=== PATIENT | female | born 1950 | race Caucasian/White ===

== ENCOUNTER 2020-12-13 13:19 | Emergency (ER) | payer MEDICARE ==
--- NOTE | 2020-12-13 14:19 | EDM.PDOC ---
ED HPI GENERAL MEDICAL PROBLEM - General Chief Complaint: Respiratory Problem Stated Complaint: COUGH Time Seen by Provider: 12/13/20 14:11 Source of Information: Reports: Patient, Family, RN Notes Reviewed History Limitations: Reports: No Limitations - History of Present Illness INITIAL COMMENTS - FREE TEXT/NARRATIVE: 70-year-old female presents emergency department day complaint of cough, she was evaluated by her primary care started on Tessalon Perles. She states she does not like the Perles as it makes her sedated. She is also set up for a PET scan in the future radiology did find some suspicious lesions in her lung palmer she is set up for that on Saturday of next week - Related Data Allergies Allergy/AdvReac Type Severity Reaction Status Date / Time No Known Allergies Allergy Verified 12/13/20 13:37 Home Meds: Home Meds Albuterol Sulfate [Albuterol Sulfate Hfa] 1 - 2 puff INH Q4H PRN 12/13/20 [History] Benzonatate [Tessalon Perle] 100 mg PO TID 12/13/20 [History] Clopidogrel [Plavix] 75 mg PO DAILY 12/13/20 [History] LORazepam [Ativan] 0.5 mg PO ASDIRECTED 12/13/20 [History] Pravastatin Sodium 80 mg PO BEDTIME 12/13/20 [History] amLODIPine [Norvasc] 10 mg PO DAILY 12/13/20 [History] glipiZIDE [Glucotrol XL] 5 mg PO DAILY 12/13/20 [History] lisinopriL [Lisinopril] 5 mg PO DAILY 12/13/20 [History] Past Medical History Cardiovascular History: Reports: Aneurysm, High Cholesterol, Hypertension, PVD Respiratory History: Reports: COPD Genitourinary History: Reports: Renal Disease Other Genitourinary History: Stage 3, renal artery stenosis Endocrine/Metabolic History: Reports: Diabetes, Type II Social & Family History - Tobacco Use Tobacco Use Status *Q: Current Every Day Tobacco User Years of Tobacco use: 50 Packs/Tins Daily: 1 - Caffeine Use Caffeine Use: Reports: Coffee - Recreational Drug Use Recreational Drug Use: No ED ROS GENERAL - Review of Systems Review Of Systems: See Below Constitutional: Reports: No Symptoms Respiratory: Reports: Cough Cardiovascular: Reports: No Symptoms GI/Abdominal: Reports: No Symptoms ED EXAM, GENERAL - Physical Exam Exam: See Below Exam Limited By: No Limitations General Appearance: Alert, WD/WN, No Apparent Distress Respiratory/Chest: No Respiratory Distress, Lungs Clear, Normal Breath Sounds, No Accessory Muscle Use, Chest Non-Tender Cardiovascular: Regular Rate, Rhythm, No Murmur Course - Vital Signs Last Recorded V/S: Last Vital Signs Temp 97.6 F 12/13/20 13:41 Pulse 87 12/13/20 13:41 Resp 18 12/13/20 13:41 BP 145/70 H 12/13/20 13:41 Pulse Ox 96 12/13/20 13:41 Departure - Departure Time of Disposition: 14:18 Disposition: Home, Self-Care 01 Condition: Fair Clinical Impression: Cough - Discharge Information Instructions: Cough, Adult, [id number] Referrals: Beatriz Leahy MD [Primary Care Provider] - Additional Instructions: Use the Robitussin-AC as needed to suppress the cough keep your follow-up appointment after the PET scan with your primary care Sepsis Event Note (ED) - Evaluation Sepsis Screening Result: No Definite Risk - Focused Exam Vital Signs: Vital Signs Temp Pulse Resp BP Pulse Ox 12/13/20 13:41 97.6 F 87 18 145/70 H 96 12/13/20 13:34 97.6 F 87 18 145/70 H 96 - Assessment/Plan Plan: Assessment Acuity = acute Site and laterality = cough complicated patient with known history of COPD Etiology = unknown Manifestations = none Location of injury = Home Lab values = none Plan Prescription written for Robitussin-AC 5 mL p.o. 3 times daily as needed follow- up primary after PET scan This note was dictated using [place] voice recognition software please call with any questions on syntax or grammar.
== END 2020-12-13 14:26 | disposition home or self-care (01) ==
LOC: JP.ED 13:19
DX: R05 Cough (principal); E78.00 Pure hypercholesterolemia, unspecified; I10 Essential (primary) hypertension; J44.9 Chronic obstructive pulmonary disease, unspecified; Z72.0 Tobacco use; Z79.899 Other long term (current) drug therapy; Z79.02 Long term (current) use of antithrombotics/antiplatelets
CPT/HCPCS: 99283

== ENCOUNTER 2023-12-22 08:51 | Inpatient (IN) | payer MEDICARE ==
[2023-12-22 09:25] LABS: BASOPHILS ABSOLUTE AUTO 0.04 K/uL (0.00-0.10); BASOPHILS PERCENT AUTO 0.3 % (0.1-1.3); EOSINOPHILS ABSOLUTE AUTO 0.07 K/uL (0.00-0.40); EOSINOPHILS PERCENT AUTO 0.6 % (0.0-5.4); HEMATOCRIT 33.8 % (34.3-46.0); HEMOGLOBIN 10.8 g/dL (11.2-15.5); IMMATURE GRAN ABSOLUTE AUTO 0.04 K/uL (0.00-0.23); IMMATURE GRAN PERCENT AUTO 0.3 % (0.0-0.7); LYMPHOCYTES ABSOLUTE AUTO 1.67 K/uL (0.8-3.3); LYMPHOCYTES PERCENT AUTO 14.3 % (11.4-47.7); MEAN CORPUSCULAR HEMOGLOBIN 28.4 pg (31.6-35.5); MEAN CORPUSCULAR VOLUME 88.9 fL (81.4-99.0); MONOCYTES ABSOLUTE AUTO 0.49 K/uL (0.20-0.90); MONOCYTES PERCENT AUTO 4.2 % (3.3-12.6); NEUTROPHILS ABSOLUTE AUTO 9.39 K/uL (1.0-7.6); NEUTROPHILS PERCENT AUTO 80.3 % (40.0-78.1); PLATELET COUNT,PLT 291 K/uL (130-375); WHITE BLOOD CELL COUNT,WBC 11.7 K/uL (3.2-11.0)
[2023-12-22 09:31] LABS: PROTHROMBIN TIME 10.6 sec (9.2-10.6)
[2023-12-22] MEDS: Sodium Chloride 0.9% 1,000 ML IV SCH ×2 (09:31→13:28)
[2023-12-22 09:38] LABS: A/G RATIO 0.7 (1.2-2.2); ALANINE AMINOTRANSFERASE,ALT 14 U/L (12-78); ALBUMIN 2.8 g/dL (3.4-5.0); ALKALINE PHOSPHATASE 162 U/L (46-116); ASPARTATE AMNIOTRANSFERASE,AST 12 U/L (15-37); BILIRUBIN TOTAL 0.3 mg/dL (0.2-1.0); BLOOD UREA NITROGEN,BUN 37 mg/dL (7-18); CALCIUM 9.1 mg/dL (8.5-10.1); CARBON DIOXIDE,CO2 20 mmol/L (21-32); CHLORIDE,CL 107 mmol/L (100-108); CREATININE 2.2 mg/dL (0.6-1.0); EST CRCL DRUG DOSING (CG) 19.88 mL/min; ESTIMATED GFR 23 mL/min (>60); GLUCOSE RANDOM 143 mg/dL (74-106); POTASSIUM,K 5.6 mmol/L (3.6-5.2); SODIUM,NA 139 mmol/L (140-148)
[2023-12-22 09:39] LABS: ANION GAP 17.6 mmol/L (5.0-14.0)
[2023-12-22] MEDS: Pantoprazole 40 MG Vial IVPUSH ONE (11:16)
[2023-12-22] MEDS ORDERED: Albuterol 6.7 GM Inhaler INH PRN (12:52)
[2023-12-22] MEDS ORDERED: Sodium Chloride 0.9% 10 ML Syringe FLUSH PRN (12:52)
[2023-12-22] MEDS ORDERED: Acetaminophen 325 MG Tab PO PRN (12:52)
[2023-12-22] MEDS: Pantoprazole 80 MG in Sodium Chloride 0.9% 100 ML IV SCH (13:28)
[2023-12-22] MEDS: Sodium Polystyrene Sulfonate 15 GM/60 ML Susp 60 ML Bot PO ONE (13:28)
[2023-12-22] MEDS: Bisacodyl 5 MG Tab PO ONE ×2 (14:39→20:03)
[2023-12-22] MEDS: Nicotine 7 MG/24 Hr Patch TRDERM SCH (16:56)
[2023-12-22] MEDS: Polyethylene Glycol 3350 Powder 238 GM Bot PO ONE (17:03)
[2023-12-22] MEDS: Ondansetron 4 MG/2 ML SDV IV PRN (18:21)
[2023-12-22] MEDS: Pravastatin 20 MG Tab PO SCH (20:03)
[2023-12-23 05:10] LABS: BASOPHILS ABSOLUTE AUTO 0.04 K/uL (0.00-0.10); BASOPHILS PERCENT AUTO 0.5 % (0.1-1.3); EOSINOPHILS ABSOLUTE AUTO 0.16 K/uL (0.00-0.40); EOSINOPHILS PERCENT AUTO 1.8 % (0.0-5.4); HEMATOCRIT 27.9 % (34.3-46.0); HEMOGLOBIN 9.2 g/dL (11.2-15.5); IMMATURE GRAN ABSOLUTE AUTO 0.04 K/uL (0.00-0.23); IMMATURE GRAN PERCENT AUTO 0.5 % (0.0-0.7); LYMPHOCYTES ABSOLUTE AUTO 1.95 K/uL (0.8-3.3); MEAN CORPUSCULAR HEMOGLOBIN 29.5 pg (31.6-35.5); MEAN CORPUSCULAR VOLUME 89.4 fL (81.4-99.0); MONOCYTES ABSOLUTE AUTO 0.66 K/uL (0.20-0.90); MONOCYTES PERCENT AUTO 7.4 % (3.3-12.6); NEUTROPHILS ABSOLUTE AUTO 6.03 K/uL (1.0-7.6); NEUTROPHILS PERCENT AUTO 67.8 % (40.0-78.1); PLATELET COUNT,PLT 152 K/uL (130-375); RED BLOOD CELL COUNT 3.12 M/uL (3.77-5.24); WHITE BLOOD CELL COUNT,WBC 8.9 K/uL (3.2-11.0)
[2023-12-23 05:30] LABS: CALCIUM 8.1 mg/dL (8.5-10.1); CREATININE 1.8 mg/dL (0.6-1.0); EST CRCL DRUG DOSING (CG) 24.3 mL/min; MAGNESIUM 1.5 mg/dL (1.8-2.4); POTASSIUM,K 4.6 mmol/L (3.6-5.2)
[2023-12-23 05:32] LABS: ANION GAP 15.6 mmol/L (5.0-14.0)
[2023-12-23] MEDS: Magnesium Sulfate/Water 2 GM in Premix Bag 1 BAG IV SCH (09:08)
[2023-12-23] MEDS ORDERED: fentaNYL 50 MCG/ML SDV ONE (10:04)
[2023-12-23] MEDS ORDERED: Propofol 200 MG/20 ML SDV ONE ×2 (10:04→10:19)
[2023-12-23] MEDS: Lisinopril 5 MG Tab PO SCH (11:36)
== END 2023-12-23 14:08 | disposition home or self-care (01) | DRG 811 ==
LOC: JP.ED 08:51 → JP.ICU 12:13
PROVIDERS: ADMIT Hospitalist; ATTEND Internal Medicine
PROC: 30233N1 Transfusion of Nonautologous Red Blood Cells into Peripheral Vein, Percutaneous Approach (ICD-10-PCS; 2023-12-22)
PROC: 0DJD8ZZ Inspection of Lower Intestinal Tract, Via Natural or Artificial Opening Endoscopic (ICD-10-PCS; 2023-12-23)
PROC: 30233N1 Transfusion of Nonautologous Red Blood Cells into Peripheral Vein, Percutaneous Approach (ICD-10-PCS; 2023-12-23)
PROC: 0DJ08ZZ Inspection of Upper Intestinal Tract, Via Natural or Artificial Opening Endoscopic (ICD-10-PCS; principal; 2023-12-23 10:00)
DX: K92.2 Gastrointestinal hemorrhage, unspecified (principal); E87.6 Hypokalemia; D62 Acute posthemorrhagic anemia; K57.31 Diverticulosis of large intestine without perforation or abscess with bleeding; E11.51 Type 2 diabetes mellitus with diabetic peripheral angiopathy without gangrene; J44.9 Chronic obstructive pulmonary disease, unspecified; J42 Unspecified chronic bronchitis; E78.00 Pure hypercholesterolemia, unspecified; N18.32 Chronic kidney disease, stage 3b; E87.5 Hyperkalemia; I12.9 Hypertensive chronic kidney disease with stage 1 through stage 4 chronic kidney disease, or unspecified chronic kidney disease; E11.22 Type 2 diabetes mellitus with diabetic chronic kidney disease; K63.5 Polyp of colon; F17.210 Nicotine dependence, cigarettes, uncomplicated; Z79.02 Long term (current) use of antithrombotics/antiplatelets; Z79.82 Long term (current) use of aspirin; Z79.899 Other long term (current) drug therapy
CPT/HCPCS: 36415; 80053; 85025; 85610; 96361; 96374; 99285; C9113; J7030; 36430; 80048; 83735; 85018; 86850; 86900; 86901; 86920; 86922; 99222; 99238; A9270-GY; J2405; J2704; J3010; J3475; J3490; P9016